=== PATIENT | female | born 1970 | race Asian ===

== ENCOUNTER 2017-07-07 15:21 | Emergency (ER) | payer BC, OTHER ==
[2017-07-07 15:29] VITALS: BP 175/97; PULSE 73; RESP 18; TEMP 98.8; O2SAT 97
--- NOTE | 2017-07-07 16:04 | EDPHY ---
H & P Stated Complaint: ?slept funny L arm;pins/needles sensation L shoulder/arm, worse w/movement Time Seen by Provider: 07/07/17 16:04 - Personal History LMP (Females 10-55): 8-14 Days Ago Current Tetanus Diphtheria and Acellular Pertussis (TDAP): Yes - Medical/Surgical History Other PMH: thyroid - Social History Smoking Status: Never smoked Constitutional: Initial Vital Signs Temperature (C) 37.1 C 07/07/17 15:24 Heart Rate 73 07/07/17 15:24 Respiratory Rate 18 07/07/17 15:24 Blood Pressure 175/97 H 07/07/17 15:24 O2 Sat (%) 97 07/07/17 15:24 O2 Delivery Mode Room Air Allergies/Adverse Reactions: No Known Allergies Allergy (Verified 07/07/17 15:22) Home Medications: Medication Instructions Recorded Hydrocodone/APAP 5/325 [Montrose 1 - 2 each PO Q4-6PRN PRN #20 tab 07/07/17 5/325] Ibuprofen [Motrin] 800 mg PO Q8 #20 tab 07/07/17 Levothyroxine [Synthroid 75 mcg 75 mcg PO DAILY06 07/07/17 (*)] methylPREDNISolone [Medrol Dose 1 each PO AD #1 ea 07/07/17 Ronnie] Medical Decision Making ED Course/Re-evaluation: CHIEF COMPLAINT: Left arm pain HISTORY OF PRESENT ILLNESS: The patient is a 47 y/o female arriving with her daughter complaining of shooting left arm pain and tingling extending from her neck to left trapezius and upper arm. Her pain began this morning and she attributes to sleeping funny on her arm. Her pain is aggravated by turning her head to the left. She denies weakness. No midline neck or back pain, headache, fever, recent trauma, or recent illness. She is normally healthy. REVIEW OF SYSTEMS: A 10 point review of systems was performed and is negative with the exception of the elements mentioned in the history of present illness. PHYSICAL EXAM: HR, BP, O2 Sat, RR. Temp noted General Appearance: Alert, well hydrated, appropriate, and non-toxic appearing. Head: Atraumatic without scalp tenderness or obvious injury Eyes: Pupils equal, round, reactive to light and accommodation, EOMI, no trauma , no injection. Nose: Atraumatic, no rhinorrhea, clear. Throat: Mucus membranes moist. Neck: Supple, mild left paraspinous tenderness, no midline tenderness, no lymphadenopathy. Respiratory: No retractions, no distress, no wheezes, and no accessory muscle use. Lungs are clear to auscultation bilaterally. Cardiovascular: Regular rate and rhythm, no murmurs, rubs, or gallops. Good capillary refill all extremities. Gastrointestinal: Abdomen is soft, nontender, non-distended, no masses, no rebound, no guarding, no peritoneal signs. Musculoskeletal: Normal active ROM of all extremities, atraumatic. Neurological: Alert, appropriate, and interactive. The patient has non-focal cranial nerves, motor, sensory, and cerebellar exam. Normal 5/5 strength upper extremities. Skin: No rashes, good turgor, no nodules on palpation. Past medical history: Hypothyroidism Past surgical history: Denies Family history: Noncontributory Social history: Daughter at bedside. Lives in [place]. . Employed. From [facility]. DIFFERENTIAL DIAGNOSIS: The differential diagnosis for the patient's neck and arm pain included but was not limited to musculoskeletal pain, epidural abscess , herniated disk, spinal fracture, contusion, strain. MEDICAL DECISION MAKING: This is a healthy 47 y/o female who presents with a few-hour history of left- sided neck pain and left arm pain and tingling. She has mild tenderness in her left paraspinous muscles and left trapezius on exam. Normal strength and sensation. Distribution of symptoms is consistent with a low cervical radiculopathy or muscular strain. No indication for emergent imaging today as she has a normal neurovascular exam. Recommend treatment with Medrol, ibuprofen , Montrose, and freelance writer follow up. Return precautions discussed. She is comfortable with this plan. Departure - Departure Disposition: Home, Routine, Self-Care Clinical Impression: Radiculopathy affecting upper extremity Condition: Good Instructions: Hydrocodone/Acetaminophen (By mouth), Ibuprofen (By mouth), Methylprednisolone (By mouth), Cervical Radiculopathy (ED), Neck Pain (ED) Additional Instructions: 1. Take 800mg ibuprofen every 6-8 hours for pain and inflammation over the next 3-5 days. 2. Take Medrol dose pack as prescribed. Be sure to complete the entire prescription. 3. Use Montrose as needed for severe pain. This medication will make you sleepy. Do not use it before driving or working. 4. Follow up with Lidya Black in the next week for reevaluation. 5. Return to the ED for worsening of condition. Referrals: Lidya Black [Outside] - As per Instructions Prescriptions: Hydrocodone/APAP 5/325 [Montrose 5/325] 1 - 2 each PO Q4-6PRN PRN #20 tab PRN Reason: Pain, Moderate Ibuprofen [Motrin] 800 mg PO Q8 #20 tab methylPREDNISolone [Medrol Dose Ronnie] 1 each PO AD #1 ea Report Scribed for: Carlos Kimbrough Report Scribed by: Nena Rondon Date of Report: 07/07/17 Time of Report: 17:21
== END 2017-07-07 17:37 | disposition home or self-care (01) ==
DX: M54.10 Radiculopathy, site unspecified (principal)